=== PATIENT | female | born 1965 | race American Indian/Alaskan Native ===

== ENCOUNTER 2017-04-22 13:21 | Outpatient (CLI) | payer MEDICAID ==
--- NOTE | 2017-04-22 14:16 | Mammography Report ---
BILATERAL DIGITAL DIAGNOSTIC MAMMOGRAM WITH CAD : 04/22/17 13:21:00 CLINICAL: Breast cancer survivor status post left partial mastectomy and COMPARISON: FINDINGS: Heterogeneously dense breasts with a type II parenchymal pattern (25-50% fibroglandular). Stable left postsurgical scar. No mass, suspicious architectural distortion or suspicious calcifications. IMPRESSION: No mammographic evidence of malignancy. BI-RADS CATEGORY: 2 -- Benign RECOMMENDATION: Routine mammogram in one year. COMMENT: Patient follow-up letters are generated via our [employer] application.
== END 2017-04-22 13:22 | disposition home or self-care (01) ==
LOC: SPVWC 13:21
PROVIDERS: ATTEND Radiology Radiation Oncology
DX: D05.12 Intraductal carcinoma in situ of left breast (principal); R92.8 Other abnormal and inconclusive findings on diagnostic imaging of breast; Z90.12 Acquired absence of left breast and nipple
CPT/HCPCS: 77066; G0204

== ENCOUNTER 2018-04-25 08:36 | Outpatient (CLI) | payer OTHER ==
--- NOTE | 2018-04-25 11:46 | Mammography Report ---
Screening mammogram: Left breast cancer survivor post partial left mastectomy and radiation therapy. Routine views are compared to her prior exam in March 2017. Surgical clips identified in the upper outer left breast with postsurgical scarring. Left axillary clip. The breast pattern bilaterally is otherwise heterogeneous and generally symmetric in distribution. No interval changes or suspicious findings compared to her prior examination in March 2017. CAD used. Impression: Stable exam. Recommendation: Annual mammogram followup. BI-RADS CATEGORY: 2 = Benign ACR BI-RADS MAMMOGRAPHIC CODES: 0 = Needs additional imaging evaluation; 1 = Negative; 2 = Benign; 3 = Probably benign; 4 = Suspicious; 5 = Malignant; 6 = Known biopsy-proven malignancy COMMENT: 1. Dense breast tissue, i.e., adenosis, fibrocystic changes, etc., may obscure an underlying neoplasm. 2. Approximately 10% of cancers are not detected with mammography. 3. A negative mammography report should not delay biopsy if a clinically suspicious mass is present.
== END 2018-04-25 08:37 | disposition home or self-care (01) ==
LOC: SPVWC 08:36
PROVIDERS: ATTEND Radiology Radiation Oncology
DX: Z12.31 Encounter for screening mammogram for malignant neoplasm of breast (principal)
CPT/HCPCS: 77067

== ENCOUNTER 2019-05-05 10:47 | Outpatient (CLI) | payer BC, OTHER ==
--- NOTE | 2019-05-08 10:22 | Mammography Report ---
DIGITAL SCREENING MAMMOGRAM WITH CAD, 05/05/2019 INDICATION: Routine screening mammography. TECHNIQUE: Digital bilateral 2D mammography was obtained in the craniocaudal and mediolateral obliq ue projections. This examination was interpreted with the benefit of Computer-Aided Detection analysi s. COMPARISON: 04/26/2015, 04/20/2014 FINDINGS: Breast Density: There are scattered areas of fibroglandular density. There is no evidence of dominant mass, suspicious calcifications or architectural distortion in eithe r breast. Left surgical changes are stable. IMPRESSION: BI-RADS Category 2: Benign. No mammographic evidence of malignancy. Recommend routine screening ma mmography in one year. A "normal" or negative report should not discourage follow up or biopsy of a clinically significant f inding. A written summary of these findings will be mailed to the patient. The patient will be entered into a mammography reporting system which will generate a reminder letter for the patient's next appointmen t at the appropriate interval. The [employer] recommends yearly mammograms starting at age 40 and continuing as l phyllis as a woman is in good health. Breast MRI is recommended for women with an approximate 20-25% or greater lifetime risk of breast cancer, including women with a strong family history of breast or ova suzette cancer or who have been treated for Hodgkin's disease. Signer Name: Nii Salgado MD Signed: 05/08/2019 10:18 AM Workstation Name: [id number]
== END 2019-05-05 10:48 | disposition home or self-care (01) ==
LOC: SPVWC 10:47
PROVIDERS: ATTEND Family Medicine
DX: Z12.31 Encounter for screening mammogram for malignant neoplasm of breast (principal)
CPT/HCPCS: 77067